=== PATIENT | male | born 1935 | race Caucasian/White ===

== ENCOUNTER 2019-01-15 13:42 | Outpatient (CLI) | payer MEDICARE, OTHER ==
[~2019-01-15 13:42] MED LIST: BUPIVACAINE HCL 0.5% (5MG/ML) PF 10ML VIAL IV ONE; IOHEXOL 300 MG/ML BOTTLE 50 ML ONE; Lidocaine 1% 5ml 10 MG/ML VIAL ONE; methylPREDNISolone ACETATE 40 MG/ML VIAL IM ONE
== END 2019-01-15 15:30 ==
LOC: OUT 13:42
DX: M51.16 Intervertebral disc disorders with radiculopathy, lumbar region (principal); M54.5 Low back pain
CPT/HCPCS: 64483; J1030; J3490